=== PATIENT | female | born 1930 | race Caucasian/White ===

== ENCOUNTER → 2017-01-09 | Outpatient (CLI) | payer OTHER, MEDICARE | LOC: BHFA 10:15 | PROVIDERS: ATTEND Internal Medicine Interventional Cardiology | DX: R07.9 Chest pain, unspecified (principal); R06.00 Dyspnea, unspecified ==

== ENCOUNTER → 2017-12-17 | Outpatient (CLI) | payer OTHER, MEDICARE | LOC: BHFA 13:15 | PROVIDERS: ATTEND Internal Medicine Cardiovascular Disease | DX: I25.10 Atherosclerotic heart disease of native coronary artery without angina pectoris (principal) | CPT/HCPCS: 93306-PO ==

== ENCOUNTER → 2017-12-29 | Outpatient (CLI) | payer OTHER, MEDICARE ==
[~2017-12-29] MED LIST: REGADENOSON 0.4 MG/5 ML SYR IVP ONE
--- NOTE | 2017-12-29 15:01 | CPR ---
[f rep st] NONINVASIVE CARDIAC PROCEDURE REPORT DATE OF PROCEDURE: 12/29/2017 PROCEDURE: A nuclear Lexiscan stress test. This is an outpatient test. REASON FOR TEST: Known coronary artery disease, history of coronary artery bypass, shortness of brittney th, and pain between her shoulder blades. Resting EKG shows a regular sinus rhythm with late R-wave progression. No arrhythmias. No ischemic changes noted. Resting blood pressure is 138/70, resting heart rate 72, oxygen saturation 95%. She is asymptomatic pre test. STRESS PORTION LEXISCAN NUCLEAR STRESS TEST: Lexiscan was injected rapidly, followed by saline flush . Cardiolite was then injected, followed by saline flush. She did note flushing, shortness of breat h, left hand tingling and heaviness in legs during the injection into the recovery. Her peak blood p ressure was 140/62, peak heart rate 117, oxygen saturation 99%. There were no EKG changes. RECOVERY: She did spontaneously recover with caffeine. The shortness of breath, arm and leg discomf ort did dissipate. Her resting recovery blood pressure 138/62, heart rate 106, oxygen saturation 98% . At conclusion of recovery, her symptoms had subsided. At this time, she currently is stable for [facility] imaging. /[id number]/MODL
== END ==
LOC: FIMAGING 13:08
PROVIDERS: ATTEND Nurse Practitioner Adult Health
PROC: C22G1ZZ Tomographic (Tomo) Nuclear Medicine Imaging of Myocardium using Technetium 99m (Tc-99m) (ICD-10-PCS; principal; 2017-12-29)
DX: I25.10 Atherosclerotic heart disease of native coronary artery without angina pectoris (principal); I42.9 Cardiomyopathy, unspecified
CPT/HCPCS: 78452; 93017; A9500; J2785

== ENCOUNTER → 2018-01-25 | Day surgery (SDC) | payer OTHER, MEDICARE ==
[~2018-01-25] MED LIST changes: +ACETAMINOPHEN 325 MG TAB ONE; +ASPIRIN EC 325 MG TAB PO ONE; +DIAZEPAM 5 MG TAB PO ONE; +FAMOTIDINE 20 MG TAB PO ONE; +FAMOTIDINE 20 MG/NACL/50 ML BAG IV ONE; +HEPARIN 10,000 UNIT/10 ML MDV (1,000 UNIT/ML) ONE; +IOPAMIDOL (ISOVUE 370) 100 ML BTL IV ONE; +LIDOCAINE 1% 300 MG/30 ML SDV ONE; +MIDAZOLAM 2 MG/2 ML VIAL ONE; +NITROGLYCERIN 0.4 MG BTL SL PRN; +NS 1,000 ML IV ONE; -REGADENOSON 0.4 MG/5 ML SYR IVP ONE; +VERAPAMIL 5 MG/2 ML VIAL ONE; +diphenhydrAMINE 25 MG CAP PO ONE; +fentaNYL 100 MCG/2 ML INJ ONE; +methylPREDNISolone SOD SUCC 125 MG/2 ML VIAL ONE
--- NOTE | 2018-01-25 10:12 | CPEKG ---
Heart Rate: 77 RR Interval: 779 P-R Interval: 200 QRSD Interval: 74 QT Interval: 404 QTC Interval: 458 P [place]: 61 QRS [place]: 10 T Wave [place]: 65 EKG Severity - ABNORMAL ECG - EKG Impression: SINUS RHYTHM EKG Impression: ABNRM R PROG, CONSIDER ASMI OR LEAD PLACEMENT EKG Impression: T WAVE CHANGES NOTED ON PRIOR ECG (FROM JANUARY 2015) ARE NO LONGER NOTED Electronically Signed By: Anirudh Little 27-Jan-2018 07:27:50
--- NOTE | 2018-01-25 10:13 | PDPROPOC ---
Sedation Plan of Care Sedation Plan of Care: vital signs stable, mental status noted, patient educated of risks, benefits, alternatives, patient can tolerate sedation ASA Classification: ASA 2 Planned drugs: fentanyl, midazolam Mallampati Score: Class 1 Mallampati Reference Image: Patient passed 3-3-2 rule?: Yes
--- NOTE | 2018-01-25 10:13 | PDHPUP ---
History & Physical Update H&P update statement: This history and physical update is based on an assessment of the patient which was completed after admission or registration (within 24 hours), but prior to the surgery/procedure. H&P update: H&P reviewed & patient examined, no change in patient's condition since H&P completed
[2018-01-25 10:50] LABS: PLATELET COUNT 167 10^3/uL (150-400)
[2018-01-25 10:59] LABS: INR 0.96 (0.83-1.16)
--- NOTE | 2018-01-25 13:15 | PDDXCAT ---
Diagnostic Cath Note - . Date: 01/25/18 Professor Of Sociology: Moises Indication: Class I/II angina, intolerance to med therapy or failure to respond - Procedure Access: left wrist Procedure: left heart catheterization, coronary angiography, vein graft injection - Materials Left Heart Cath size: 5F Left Heart Cath materials: JL3.5, JR4.0, other (LCB) - Findings-Left Heart Catheterization LM: Unobstructed LAD: 100% occluded. Proximal diagonal stents widely patent. LCX: Kiana circ widely patent RCA: Diffuse luminal irregularities of up to 30% rSVG: Saphenous vein graft to the LAD widely patent. Distal to the insertion site 50 to 60 % stenosis. 7 vein graft to the obtuse marginal branch widely patent. Complications: Significant left arm pain with transfer of catheters limiting diagnostic Closure method: TR Band Assessment: Severe [place] three-vessel coronary disease with patent vein graft to the LAD, patent vein graft to the obtuse marginal branch, widely patent site of prior stenting within the diagonal. Some progression of LAD disease distal to insertion site now up to 60%. Plan: Continued aggressive medical therapy. For significant limitations of activity considerations for high risk PCI of the LAD through the vein graft. This would need to be performed from the femoral artery in light of significant discomfort related to radial artery access. Results discussed with patient's family. Patient Problems: Problems Problem Status Onset Cardiomyopathy Acute
== END | disposition home or self-care (01) ==
LOC: FCATH 09:41
PROVIDERS: ATTEND Internal Medicine Interventional Cardiology
DX: I25.10 Atherosclerotic heart disease of native coronary artery without angina pectoris (principal); I42.9 Cardiomyopathy, unspecified; E78.5 Hyperlipidemia, unspecified; Z95.9 Presence of cardiac and vascular implant and graft, unspecified; Z95.1 Presence of aortocoronary bypass graft
CPT/HCPCS: 93005; 93454; 93455; C1769; J1200; J1644; J2250; J2930; J3010; Q9967

== ENCOUNTER → 2018-06-15 | Outpatient (CLI) | payer OTHER, MEDICARE | LOC: BHFA 13:45 | PROVIDERS: ATTEND Nurse Practitioner Adult Health | DX: I25.10 Atherosclerotic heart disease of native coronary artery without angina pectoris (principal); I51.81 Takotsubo syndrome; Z95.1 Presence of aortocoronary bypass graft; Z95.5 Presence of coronary angioplasty implant and graft ==